=== PATIENT | female | born 1945 | race Caucasian/White ===

== ENCOUNTER 2018-09-17 11:10 | Day surgery (SDC) | payer MEDICARE, OTHER ==
[2018-09-17] MEDS: CYCLOPENTOLATE 1% SOL ONE ×3 (11:45→11:53)
[2018-09-17] MEDS: PHENYLEPHRINE HCL 10% OPHTHAL SOL ONE ×3 (11:45→11:53)
[2018-09-17] MEDS ORDERED: KETOROLAC/HOME 0.5% SOL RIGHTEYE ONE ×3 (11:46→11:53)
[2018-09-17] MEDS ORDERED: MOXIFLOXACIN-HOME SOL RIGHTEYE ONE ×2 (11:46→11:50)
[2018-09-17] MEDS: TROPICAMIDE 1% OPHTH SOL ONE ×3 (11:46→11:54)
[2018-09-17] MEDS: TETRACAINE HCL 0.5 % 1 DROP SOL ONE ×2 (11:54→13:38)
[2018-09-17] MEDS ORDERED: MIDAZOLAM 2 MG/2 ML SOL ONE (12:13)
[2018-09-17] MEDS ORDERED: BSS W/ 0.5 MG P.F. EPI 1 BOTTLE ONE (13:26)
[2018-09-17] MEDS ORDERED: POVIDONE IODINE 5% SOL ONE (13:26)
[2018-09-17] MEDS ORDERED: LIDOCAINE HCL 2% MPF 10 ML SOL ONE (13:26)
[2018-09-17] MEDS ORDERED: ACETAZOLAMIDE 250 MG PO ONE (13:30)
[2018-09-17 14:06] VITALS: BP 167/73; PULSE 85; RESP 20; TEMP 98.1; O2SAT 95
[2018-09-17] MEDS ORDERED: ACETAMINOPHEN 325 MG ONE (14:08)
== END 2018-09-17 14:32 | disposition home or self-care (01) | DRG 125 ==
LOC: SURG 11:10
PROVIDERS: ATTEND Ophthalmology
DX: H25.89 Other age-related cataract (principal); E11.9 Type 2 diabetes mellitus without complications
CPT/HCPCS: 82962; J2250; A9270-GY